=== PATIENT | male | born 1965 | race Caucasian/White ===

== ENCOUNTER → 2019-08-29 15:10 | Outpatient (REF) | payer BC, SELFPAY | LOC: ANHLAB 15:10 | PROVIDERS: PCP Internal Medicine; Visit Provider Nurse Practitioner | DX: C44.519 Basal cell carcinoma of skin of other part of trunk (principal); L57.0 Actinic keratosis | CPT/HCPCS: 88305 ==

== ENCOUNTER → 2019-09-26 07:47 | Outpatient (REF) | payer BC, SELFPAY | LOC: ANHLAB 07:47 | PROVIDERS: PCP Internal Medicine; Visit Provider Nurse Practitioner | DX: C44.519 Basal cell carcinoma of skin of other part of trunk (principal) | CPT/HCPCS: 88305; 88331; 88332 ==

== ENCOUNTER 2022-04-07 07:00 | Outpatient (NON) | payer BC, SELFPAY | END 2022-04-07 07:01 | disposition home or self-care (01) | LOC: ANHLAB 04-08 15:55 | PROVIDERS: PCP Internal Medicine; Visit Provider Nurse Practitioner | DX: C44.622 Squamous cell carcinoma of skin of right upper limb, including shoulder (principal) | CPT/HCPCS: 88305 ==

== ENCOUNTER 2022-04-22 07:00 | Outpatient (NON) | payer BC, SELFPAY | END 2022-04-22 07:01 | disposition home or self-care (01) | LOC: ANHLAB 04-23 11:54 | PROVIDERS: PCP Internal Medicine; Visit Provider Nurse Practitioner | DX: C44.92 Squamous cell carcinoma of skin, unspecified (principal) | CPT/HCPCS: 88304 ==

== ENCOUNTER 2022-09-11 14:03 | Outpatient (CLI) | payer BC, SELFPAY ==
--- NOTE | ~2022-09-11 | CT_ITS ---
EXAMINATION:CT chest high resolution wo ga DATE: 09/11/2022 14:38 INDICATION: Contact with and exposure to environmental hazard. TECHNIQUE: Computed tomography (CT) of the chest was performed without intravenous contrast. Automate d exposure control and iterative reconstruction technique were employed. The dose-length product (DLP ) was 347.22 mGy-cm. COMPARISON: CT abdomen and pelvis 01/14/2015 FINDINGS: The lungs demonstrate minimal atelectasis. There is a 3 mm nodule in lingula, likely benign . No bronchiectasis or honeycombing. Calcified left lung nodules and calcified left hilar and mediast inal lymph nodes are consistent with old granulomatous disease. No pleural effusion. The heart size i s normal. No pericardial effusion. Partially visualized are stones in the kidneys measuring up to 5 m m on the right. Calcifications in the spleen are consistent with old granulomatous disease. There is mild thoracic spondylosis. IMPRESSION: 1. No significant lung disease. Reviewed, dictated and finalized at location E.
== END 2022-09-11 14:04 | disposition home or self-care (01) ==
PROVIDERS: PCP Internal Medicine; Visit Provider Internal Medicine
DX: R05.9 Cough, unspecified (principal); Z77.128 Contact with and (suspected) exposure to other hazards in the physical environment
CPT/HCPCS: 71250

== ENCOUNTER 2023-01-15 15:12 | Outpatient (CLI) | payer BC, SELFPAY ==
--- NOTE | ~2023-01-15 | XR_ITS ---
XR wrist LT min 3V DATE: 01/15/2023 15:43 INDICATION: Radial pain for 4 months TECHNIQUE: 4 views COMPARISON: None FINDINGS: There is severe joint space narrowing at the triscaphe joint. Minimal osteoarthritis at fi rst metacarpophalangeal joint. No fracture or dislocation, periosteal reaction or bone destruction. No erosive change or chondrocalcinosis. IMPRESSION: Severe joint space narrowing at triscaphe joint Minimal osteoarthritis at first metacarpal joint Reviewed, dictated and finalized at location A.
--- NOTE | ~2023-01-15 | XR_ITS ---
XR elbow LT min 3V DATE: 01/15/2023 15:44 INDICATION: Elbow pain TECHNIQUE: 4 views COMPARISON: None FINDINGS: Small dorsal olecranon process spur. Minimal degenerative spurring of the radial head. No fracture or dislocation, periosteal reaction or bone destruction. No evidence of joint effusion. IMPRESSION: Mild dorsal olecranon process spur Minimal degenerative spurring of the radial head Reviewed, dictated and finalized at location A.
== END 2023-01-15 15:13 | disposition home or self-care (01) ==
PROVIDERS: PCP Internal Medicine; Visit Provider Internal Medicine
DX: M19.032 Primary osteoarthritis, left wrist (principal); M18.9 Osteoarthritis of first carpometacarpal joint, unspecified
CPT/HCPCS: 73080; 73110

== ENCOUNTER 2023-07-29 14:44 | Outpatient (CLI) | payer BC, SELFPAY ==
--- NOTE | ~2023-07-29 | XR_ITS ---
XR shoulder RT min 2V 07/29/2023 15:07 INDICATION: Right shoulder pain PROCEDURE: 4 views right shoulder COMPARISON: No prior studies for comparison. FINDINGS: Fracture, dislocation or subluxation is not identified. The soft tissues appear within norm al limits. No foreign bodies are identified. IMPRESSION: 1: NO ACUTE BONE OR JOINT ABNORMALITY IDENTIFIED. Reviewed, dictated and finalized at location A.
== END 2023-07-29 14:45 | disposition home or self-care (01) ==
PROVIDERS: PCP Internal Medicine; Visit Provider Internal Medicine
DX: M25.511 Pain in right shoulder (principal)
CPT/HCPCS: 73030

== ENCOUNTER 2023-08-04 15:15 | Outpatient (CLI) | payer BC, SELFPAY ==
--- NOTE | ~2023-08-04 | MR_ITS ---
EXAMINATION: MR shoulder RT wo con DATE: 08/04/2023 16:16 INDICATION: Right shoulder pain TECHNIQUE: Magnetic resonance imaging (MRI) of the affected shoulder was performed without intravenou s contrast. Sequences included axial PD-weighted FS FSE, coronal oblique PD-weighted FS FSE, coronal oblique T2-weighted FS FSE, sagittal PD-weighted FS FSE, and sagittal T1-weighted SE. COMPARISON: None. FINDINGS: Coracoacromial arch: The acromion undersurface is minimally curved in morphology (type I-II). The coracoacromial ligament is normal. Mild acromioclavicular osteoarthritis. Rotator cuff: Mild supraspinatus, infraspinatus and subscapularis tendons without discrete tear. The teres minor te ndon is normal. Normal rotator cuff muscle bulk and signal. Biceps tendon, glenoid labrum and glenohumeral cartilage: Mild tendinopathy and longitudinal split tear of the intra-articular long head biceps tendon. Posteri or to posterior inferior labral tear with associated subarticular cystlike change along the posterior and posterior inferior rim of the glenoid. There is chondral swelling and suggestion of chondral fis suring at the posterior inferior glenoid. Small region of deep chondral ulceration without degenerati ve subchondral changes at the superomedial aspect of the humeral head. Fluid: Physiologic amount of fluid in the glenohumeral joint and biceps tendon sheath. No loose osteochondr al bodies. No abnormal fluid signal in the subacromial/subdeltoid bursa to suggest bursitis. Bones: Bone alignment is normal. No fracture or pathologic marrow replacing process. There is capsular thick ening at the axillary recess which can be seen in the setting of adhesive capsulitis which is ultimat estela a clinical diagnosis. There is however no abnormal increased soft tissue density rotator cuff int erval which is also a typical finding of adhesive capsulitis. IMPRESSION: 1. Mild glenohumeral osteoarthritis with deep chondral ulceration at the superomedial aspect of the h umeral head and labral tear with adjacent chondral fissuring and underlying subarticular cystlike zita nges at the posterior to posterior inferior glenoid. 2. Mild rotator cuff tendinopathy without discrete tear. Reviewed, dictated and finalized at location A. IMPRESSION: 1. Mild glenohumeral osteoarthritis with deep chondral ulceration at the supero medial aspect of the humeral head and labral tear with adjacent chondral fissur ing and underlying subarticular cystlike changes at the posterior to posterior inferior glenoid. 2. Mild rotator cuff tendinopathy without discrete tear.
== END 2023-08-04 15:16 ==
LOC: GOSHIMG 15:19
PROVIDERS: Visit Provider Internal Medicine
DX: M19.011 Primary osteoarthritis, right shoulder (principal)
CPT/HCPCS: 73221

== ENCOUNTER 2023-11-12 08:28 | Outpatient (CLI) | payer BC, SELFPAY ==
--- NOTE | 2023-11-12 15:35 | ECG_ITS ---
Test Date: 2023-11-12 15:50:24 Measurements Intervals [place] Rate: 65 P: 62 RI: 180 QRS: 8 QRSD: 93 T: 29 QT: 395 QTc: 412 Interpretive Statements SINUS RHYTHM CONSIDER INFERIOR INFARCT, AGE INDETERMINATE ABNORMAL ECG No previous ECG available for comparison Electronically Signed On 11-12-2023 15:57:30 CDT by Victor Manuel Mendez D.O.
== END 2023-11-12 08:29 | disposition home or self-care (01) ==
PROVIDERS: PCP Internal Medicine; Visit Provider Orthopaedic Surgery
DX: E78.2 Mixed hyperlipidemia (principal); R94.31 Abnormal electrocardiogram [ECG] [EKG]
CPT/HCPCS: 93005

== ENCOUNTER 2023-11-16 01:12 | Day surgery (SDC) | payer BC, SELFPAY ==
[2023-11-10 13:08] VITALS: BMI 28.0
--- NOTE | 2023-11-10 13:16 | PC.NURSE ---
Report to the Outpatient Waiting Room, entrance under the green pavilion located off [facility], at time _1000_ on date _[id number]_. Planned Procedure Time: _1200_. Time changes happen often and if your time is changed the preop area will call you the afternoon before. - You and your visitor will be asked to self-screen and do not enter if you have any COVID symptoms. - A mask is optional within the hospital at this time. Patients may have clear liquids (water, carbonated beverages, clear teas, apple juice) until 3 hours prior to surgery with a maximum of 20 ounces. - No food from midnight until time of surgery Take the following medications with a SIP of water the morning of surgery: Ok for inhalers if needed. DO NOT STOP ANY OF YOUR OTHER PRESCRIPTION MEDICATIONS PRIOR TO SURGERY ?EXCEPT THE FOLLOWING Medications to discontinue per physician Patient stopped Diclofenac a few weeks ago. Date to take last dose Please no make-up, nail tajik, hairspray, perfume, deodorant, or body powder the day of surgery. No jewelry (including any body piercings) or valuables the day of surgery, leave them at home. Please take a shower or bath the night before, or the morning of, surgery with an antibacterial soap. Wear comfortable, loose fitting clothing. - Jewelry must be removed prior to entering the operating room. Rings and piercings that are not removed may be cut off. - The hospital will not accept responsibility for valuables. - Please leave all valuables, including medications, at home the day of surgery. If you are going home after surgery, a licensed experienced truck driver must drive you home. - NO public transportation without another adult if you receive anesthesia. - We recommend that an adult stay with you for 24 hours following discharge. - We also recommend that you do not drive, make important decision, drink alcoholic beverages, or take any drugs that were not prescribed by your health care provider for at least 24 hours after your discharge time. Follow any additional instructions given to you from your surgeon. If you or anyone in your household have experienced Covid symptoms in the past week, please notify your surgeon or the nurse liaison at the phone number below for possible testing. Telephone instructions given to __Joseph___and asked if any additional questions and then verbalized understanding. Patient advised to call surgeon office or pre surgery nurse liaison [phone] if any additional questions.
[2023-11-16] VITALS (9 sets, daily range): BP systolic 111–141; BP diastolic 77–92; PULSE 58–77; RESP 12–20; TEMP 36.1–36.2; O2SAT 96–100
[2023-11-16] MEDS: ACETAMINOPHEN 500 MG TABLET 1000 MG PO (10:30)
[2023-11-16] MEDS: LACTATED RINGERS 1,000 ML 30 ML IV CONT ×2 (11:05→13:38)
[2023-11-16] MEDS: KETOROLAC 15 MG/ML VIAL (*BKC) IV PUSH (11:14)
--- NOTE | 2023-11-16 11:30 | WPDANESEPPF ---
Anes - Initial Pre Proc Eval Procedure: Operation Date: 11/16/23 12:00 Proposed Procedures p Right Shoulder Arthroscopic Biceps Tenodesis with Superior Labrum Anterior and Posterior Tear Debridement - Dk Vuong MD Date/Time: 11/16/23 11:30 Surgeon: Dk Vuong MD Pre Op Diagnosis: biceps tenodesis, slap tear Patient Data Age: 58 Gender: M Height: 1.79 m Weight: 88.7 kg Last Vital Signs Temp 36.1 C L 11/16/23 10:52 Pulse 66 11/16/23 10:52 Resp 16 11/16/23 10:52 BP 111/81 11/16/23 10:52 Pulse Ox 100 11/16/23 10:52 O2 Del Method Room Air 11/16/23 10:52 Allergies Allergy/AdvReac Type Severity Reaction Status Date / Time oxycodone Allergy Intermediate Rash Verified 11/10/23 13:03 Lwldkau-AWG-ScW Reductase Allergy Unknown Joint Pain Verified 11/10/23 13:02 Inhibitor [Xjrjrew-Ezl-Zjb Reductase Inhibitor] Home Medications Medication Instructions Recorded Confirmed Type nebulizer and compressor (EasyAir #1 ea 12/04/20 11/10/23 History Compressor Nebulizer) omeprazole 20 mg capsule,delayed 20 mg PO BID PRN GERD #180 caps 03/31/22 11/10/23 Rx release tamsulosin 0.4 mg capsule See Rx Instructions .Route 04/04/22 11/16/23 Rx .COMPLEX #90 caps metaxalone 800 mg tablet 800 mg PO TID PRN muscle pain #30 02/03/23 11/16/23 Rx tabs ezetimibe 10 mg tablet (Zetia) 10 mg PO DAILY #90 tabs 04/06/23 11/16/23 Rx Nexlizet 180 mg-10 mg tablet See Rx Instructions .Route 07/21/23 11/16/23 Rx (bempedoic acid-ezetimibe) .COMPLEX #90 tabs montelukast 10 mg tablet See Rx Instructions .Route 08/20/23 11/16/23 Rx .COMPLEX #90 tabs hydrocodone 7.5 mg-acetaminophen 1 tablet PO Q6H PRN pain #120 tabs 09/09/23 11/16/23 Rx 325 mg tablet cholecalciferol (vitamin D3) 50 50 mcg PO DAILY 09/15/23 11/10/23 History mcg (2,000 unit) capsule albuterol sulfate 90 mcg/actuation 1 puff inhalation Q4H PRN 09/24/23 11/16/23 Rx aerosol inhaler shortness of breath or wheezing #42.5 grams allopurinol 300 mg tablet See Rx Instructions .Route 09/24/23 11/16/23 Rx .COMPLEX #90 tabs benzonatate 200 mg capsule 200 mg PO TID PRN cough #90 caps 09/24/23 11/10/23 Rx diclofenac sodium 75 mg 75 mg PO BID PRN Pain 11/10/23 11/10/23 History tablet,delayed release budesonide-formoterol HFA 160 See Rx Instructions .Route 11/16/23 Rx mcg-4.5 mcg/actuation aerosol .COMPLEX #30.6 grams inhaler Patient hx anesthesia problems: none Family hx anesthesia problems: none Results Review: All pre-operative results and documents have been reviewed as part of the pre-operative evaluation. [facility] Past Medical History Medical History (Updated 11/16/23 @ 11:41 by Mariano Lopez DO) Anxiety Asthma BCC (basal cell carcinoma), chest BMI 27.0-27.9,adult BMI 28.0-28.9,adult BRBPR (bright red blood per rectum) Chronic low back pain Cough DJD (degenerative joint disease) Encounter for preventive health examination Encounter for routine adult health examination without abnormal findings Fatigue Gastroesophageal reflux disease without esophagitis GERD (gastroesophageal reflux disease) Glaucoma Gout Heterozygous familial hypercholesterolemia High cholesterol History of kidney stones Hx of colonic polyps Left wrist pain Lesion of canthus Mixed hyperlipidemia Muscle cramps Nocturia Non-healing wound On snf drug therapy Pharyngitis Primary osteoarthritis involving multiple joints Prostate cancer screening Pruritus ani Reactive airway disease Seasonal allergies Sinus symptom Skin lesion Skin neoplasm Skin tag Statin intolerance Tear of left glenoid labrum Testicular hypofunction Surgical History Surgical History H/O hernia repair History of knee surgery 12 or 13 surgeries History of nasal surgery History of shoulder surgery Family History Family History (Reviewed 11/02/23 @ 08:06 by Nikky
--- NOTE | 2023-11-16 11:55 | WPDHPUPDATE1 ---
History and Physical Update Update Date/Time: 11/16/23 11:55 History and Physical has been reviewed, including an updated exam of the patient. There are NO changes in the patient's condition. Risks, benefits, and alternatives have been discussed and questions answered. Patient agrees to proceed with procedure.
--- NOTE | 2023-11-16 11:58 | WPDANESPNB ---
Anes - Peripheral Nerve Block Date/Time: 11/16/23 11:58 I have discussed with the patient/family/POA the placement of a peripheral nerve block for post-operative pain management, including associated risks, benefits, complications, and side effects. Alternative methods of post-operative analgesia were detailed. Questions were solicited and answers provided to the satisfaction of the patient/family/POA. Time-Out: A pre-procedural Time-Out was completed immediately before starting the procedure and confirmed: Patient Identification, Site, Procedure, Patient Position and the Availability of Requisite Equipment. Clinical Indications: Acute post-operative pain management requested by the operative surgeon. Nerve Block Insertion Note Anes-nerve block: interscalene right Patient position: supine Skin prep: chlorhexidine Needle: 22 gauge, stimulating, insulated echogenic needle. Needle length: 50 mm Technique: ultrasound Injectate: bupivacaine 0.5% with epi 5 mcg/ml (20cc- no epi) Observations: tolerated well Complications: none Procedure start time:: 1203 Procedure end time:: 1206
[2023-11-16] MEDS: ceFAZolin 2 GM/D5W 50 ML 2 GM/50 ML BAG IVPB (12:14)
--- NOTE | 2023-11-16 13:40 | P.OP_ITS ---
Procedure Note - Detailed Date of Procedure 11/16/23 Pre-op Diagnosis 1. Right shoulder SLAP tear with biceps tendinitis 2. Degenerative labral tear and mild degenerative arthritis 3. Subacromial impingement. Post-op Diagnosis Same Procedure Performed Right shoulder shoulder arthroscopic 1. Biceps tenodesis and labral debridement 2. Subacromial decompression Surgeon Dk Vuong MD [employer] Installation Mechanic Marcelle Jimenez PA-C Anesthesia General and Regional (Interscalene block) Findings Extensive superior and posterior labral tearing. Frayed and tearing intra- articular biceps tendon. Rotator cuff with only mild articular fraying at the supraspinatus. Arthritis with moderate chondral damage on the posterior humeral head and grade 4 chondromalacia at the posterior inferior glenoid with degenerative tearing of the posterior inferior labrum. Description of Procedure Preoperative antibiotics were given. The patient was brought to the operating room. Careful positioning in the beach chair was accomplished. The head neck were carefully positioned. A small bump was placed under the shoulder. The shoulder was prepped and draped in the usual sterile fashion. Examination under anesthesia performed. No significant findings. Standard posterior and anterior arthroscopic portals were established. The articular surfaces show degenerative wear on the humerus and the posterior glenoid. Extensive SLAP tear with posterior extension. Unstable and severely fraying intra-articular biceps. Loop intact biceps tenodesis performed with a single SwiveLock anchor at the articular margin. Attention was turned to the subacromial space. A complete bursectomy was performed. A modest acromioplasty was formed performed based on clinical, and MRI evidence of subacromial impingement. The acromion was clearly visualized. The coracoacromial ligament was partially released. Careful acromioplasty was performed. Loose bone fragments were carefully irrigated from the joint. The arthroscopic instruments were removed. The wounds were closed with interrupted 3-0 Monocryl suture followed by Steri-Strips. A sterile dressing was applied with a sling. The patient was extubated and brought to the recovery room in stable condition. There were no complications. Physician speech pathologist assistant, Marcelle Miranda PA-C, required for surgery; including patient positioning, draping, arthroscopic camera operation, maintaining instrument position, suture management, wound closure, and dressing and sling placement. Implants Arthrex 4.75 SwiveLock anchor. Estimated Blood Loss 10 Drains No Packing No Pathology None sent Complications No immediate complications Condition Stable Disposition PACU [facility] Billing Surgery - Charge Forward: Surgery Billing
[2023-11-16] MEDS: fentaNYL CITRATE INJ (*CRX) 100 MCG/2 ML VIAL 25 MCG IV PUSH ×4 (14:06→14:21)
[2023-11-16] MEDS: oxyCODONE HCL (*CRX) 5 MG TAB IR PO (14:54)
== END 2023-11-16 15:39 | disposition home or self-care (01) ==
PROVIDERS: PCP Internal Medicine; Visit Provider Orthopaedic Surgery
PROC: (CPT 29805; principal; 2023-11-16 12:00)
DX: S43.431A Superior glenoid labrum lesion of right shoulder, initial encounter (principal); M75.41 Impingement syndrome of right shoulder; M75.21 Bicipital tendinitis, right shoulder; M19.011 Primary osteoarthritis, right shoulder; M94.211 Chondromalacia, right shoulder; F41.9 Anxiety disorder, unspecified; E78.2 Mixed hyperlipidemia; J45.909 Unspecified asthma, uncomplicated; N18.9 Chronic kidney disease, unspecified; K21.9 Gastro-esophageal reflux disease without esophagitis; G89.29 Other chronic pain; M54.50 Low back pain, unspecified; G89.18 Other acute postprocedural pain; Z79.51 Long term (current) use of inhaled steroids; Z79.891 Long term (current) use of opiate analgesic; Z98.890 Other specified postprocedural states; Z86.010 Personal history of colon polyps; Z87.442 Personal history of urinary calculi; Z85.828 Personal history of other malignant neoplasm of skin; Z82.49 Family history of ischemic heart disease and other diseases of the circulatory system; X50.1XXA Overexertion from prolonged static or awkward postures, initial encounter
CPT/HCPCS: 64415; 29828; 29826; A9270; C1713; J0171; J0690; J1100; J1885; J2250; J2405; J2704; J3010; J7120

== ENCOUNTER 2024-03-14 08:50 | Outpatient (CLI) | payer BC, SELFPAY ==
--- NOTE | ~2024-03-14 | XR_ITS ---
XR abdomen/kub 1V Ordering provider: Juan Luis Curiel MD History: . N20.0 - Calculus of kidney . Comparison: None. FINDINGS: BOWEL: Nonobstructive bowel gas pattern. ORGANOMEGALY: None. SIGNIFICANT PATHOLOGIC CALCIFICATIONS: Bilateral kidney stones. OTHER: No free air is seen under the diaphragm. IMPRESSION: NO ACUTE ABDOMINAL FINDINGS. Bilateral kidney stones. Reviewed, dictated and finalized at location A. CAL RADIATION DOSIMETRIST
[2024-03-14 09:59] LABS: Add Urine Microscopic? YES; Appearance Urine Clear (Clear); Bacteria Urine None Seen /hpf; Bilirubin Urine Negative (Negative); Blood Urine 1+ (Negative); Color Urine Yellow (Yellow); Glucose Urine UA Negative (Negative); Ketones Urine Negative (Negative); Leukocyte Esterase Ur Negative LEU/UL (Negative); Nitrate Urine Negative (Negative); Non Pathogenic Casts 0-2; Protein Urine Negative (Negative); RBC Urine 21-50 /hpf (0-2); Specific Grav Ur 1.016 (1.001-1.035); Squamous Epithelial Cell Urine None Seen /hpf (Few); WBC Urine 0-5 /hpf (0-3); pH Urine 6.5 (5.0-9.0)
== END 2024-03-14 08:51 | disposition home or self-care (01) ==
LOC: ANHLAB 08:51
PROVIDERS: PCP Internal Medicine; Visit Provider Internal Medicine
DX: N20.0 Calculus of kidney (principal); N39.0 Urinary tract infection, site not specified
CPT/HCPCS: 74018; 81001

== ENCOUNTER 2024-03-23 08:32 | Outpatient (CLI) | payer BC, SELFPAY ==
--- NOTE | ~2024-03-23 | CT_ITS ---
CT of the Abdomen and Pelvis: Indication: Microscopic hematuria Technique: 2.5 mm axial scans were obtained through the abdomen and pelvis prior to and following in travenous administration of 130 cc of Omnipaque 350. Dose reduction technique was used on this scan b y utilizing automated exposure control and iterative reconstruction technique. The dose-length produc t (DLP) was 1349.48 mGy-cm. Findings: Scans through the lung bases are unremarkable. There are small bilateral nonobstructing renal stones, measuring up to 5 mm in greatest diameter. No ureteral stone or hydronephrosis on either side. The liver, spleen, pancreas, gallbladder, and adrenal glands are within normal limits. No evidence o f aortic aneurysm. No lymphadenopathy. No bowel obstruction or bowel wall thickening. There is no evidence to suggest acute appendicitis. Images through the pelvis were performed. Urinary bladder unremarkable. No pelvic mass seen. No ascit es. Impression: Bilateral nephrolithiasis, as detailed above. Reviewed, dictated and finalized at location . [facility] CONGRESS Impression: Bilateral nephrolithiasis, as detailed above.
[2024-03-23 09:24] LABS: Estimated Glomerular Filt Rate > 60
== END 2024-03-23 08:33 | disposition home or self-care (01) ==
PROVIDERS: PCP Internal Medicine; Visit Provider Internal Medicine
DX: R31.29 Other microscopic hematuria (principal); N20.0 Calculus of kidney
CPT/HCPCS: 74178; Q9967

== ENCOUNTER 2024-06-06 07:17 | Outpatient (CLI) | payer BC, SELFPAY ==
--- OUTSIDE RECORDS SUMMARY | 2024-06-06 07:21 | XMS_ITS | Clinical Summary ---
Author Organization [facility] Address [address] [place] [id number] Care Team Providers Care Polisher Balance Screwhead Name Role Phone Unavailable Primary Care Provider Unavailabl e Social History Tobacco Use Types Packs/Day Years Used Date Smoking Tobacco: Never Assessed Sex and Gender Information Value Date Recorded Sex Assigned at Not on file Legal Sex Male 7:05 PM CDT Gender Identity Not on file Sexual Orientation Not on file Plan of Treatment Health Maintenance Due Date Last Done Comments Colorectal Cancer Screening Colonoscopy (10 Years) 1963 Annual Physical 1966 Hepatitis C 1981 DTaP, Tdap and Td Vaccines ( 1 - Tdap) 1982 Zoster Vaccines (1 of 2) 2013 COVID-19 Vaccine ( - 2023-2 5 season) 2023 Influenza Adult (#1) 2024 RSV Immunization or 60+ Years (1 - 1-dose 75+ series) 2038 Meningococcal B Vaccine Aged Out No l onger eligible based on patient's age to complete this topic Meningococcal Vaccine Aged Out No alka gera eligible based on patient's age to complete this topic Pneumococcal Vaccine: Pediat rics (0 to 5 Years) and At-Risk Patients (6 to 64 Years) Aged Out No longer eligible b ased on patient's age to complete this topic RSV Immunizations Under 20 Months Aged Out No longer eligible based on patient's age to complete this topic
--- OUTSIDE RECORDS SUMMARY | 2024-06-06 07:21 | XMS_ITS | Continuity of Care Document ---
Author Organization [facility] Address [address] [place] [address] [facility] [address] [place] [address] Phone Care Team Providers Care Telecasting Technician Name Role Phone Carlitos DELONG FACS, Aidan Unavailable Unavailab le Procedures Procedure Date Eye Exam & Treatment Corneal Topography Fundus Photography W/ Report Advance Directives Directive Yes / No Effective Date File Name No Information Encounters Encounter Description Practice Location Reason(s) For Visit Diagnoses Date Provider Providers Copied on Encounter [facility], [address] [place], [place] [address] [address], [place], [place], [id number], tel:[phone] [facility] Valery No Information Carlitos Bermudez. [address] [place] [address], [address], [place], [id number], . tel:[phone] Referring Provider: Aidan Saleem, [address] [place] [address] [address], [place], [address] . tel:[phone] Family History Family Member Type Diagnosis Age At Onset No Information Payers Payer name Insurance type Covered republican ID Authoriza tion(s) No Information Social History Type Description Quantity Date Captured Comments Sex Male Smoking Status No Information Chief Complaint And Reason For Visit No Information Reason For Referral Reason For Referral No Information History Of Present Illness Encounter Date Complaint History Of Prese nt Illness No Information Functional Status Date Functional Assessmen t No Information Instructions Date Instruction Additional Infor mation No Information Assessments Type Assessment Date No Information Patient Care Teams Name Effective Dates (start - stop) Status Members No Information
--- OUTSIDE RECORDS SUMMARY | 2024-06-06 07:21 | XMS_ITS | Continuity of Care Document ---
Author Organization [facility] Address [address] [place] [address] Phone Care Team Providers Care Thread Spinner Name Role Phone Jose Roberto Jones PA-C Unavailable Unavailable Allergies, Adverse Reactions, Alerts Substance Reaction Status Criticality No Known Allergies Active No Inform ation Medications Medication Instructions Dosage Effective Dates (start - stop) Status Comments Percocet 7.5 mg-325 mg tablet take 1 tablet by oral route every 6 hours as needed 1.00 tablet - Active HYDROCODONE-ACETAMI NOPHEN (unknown strength) take 1 tablet by oral route every 4 - 6 hours as needed for pain Not Available - Active ALLOPURINOL (unknown strength) take 1 tablet by oral route every day Not Available - Active Zetia 10 mg tablet take 1 tablet by oral route every day 10 MG - Active ZAFIRLUKAST (unknown strength) take 2 tablet by oral route 2 times every day at least 1 hour before or 2 hours after meals Not Available - Active Procedures Procedure Date POSTOP FOLLOW-UP VISIT POSTOP FOLLOW-UP VISIT POSTOP FOLLOW-UP VISIT REPAIR BICEPS TENDON OFFICE/OUTPATIENT VISIT NEW Advance Directives Directive Yes / No Effective Date File Name No Information Encounters Encounter Description Practice Location Reason(s) For Visit Diagnoses Date Provider Providers Copied on Encounter [facility], [address], [place], [address], [place] tel:[phone] [facility] History of arthroscopy of left shoulder Apr-2 9 Karen Cid. [address], [place], [place], [id number] . tel: [phone] [facility], [address], [place], [address], [place] tel:[phone] [facility] History of arthroscopy of left shoulder 9 Karen Cid. [address], [place], [place], [id number] . tel: [phone] [facility], [address], [place], [address], [place] tel:[phone] [facility] History of arthroscopy of left shoulderPostoper ative visit 9 Karen Cid. [address], [place], [place], [id number] . tel: [phone] [facility], [address] [facility] [address], [place], [address], [place] tel:[phone] [facility] No Information 9 Mohsen Bautista. [address], [place], [place], [id number] . tel: [phone] [facility], [address] [facility] [facility], [place], [address], [place] tel:[phone] [facility] Rupture of left biceps tendon, initial encounterTear of left glenoid labrum, initial encounter 9 Mohsen Bautista. [address], [place], [place], [id number] . tel: [phone] OFFICE/OUTPA TIENT VISIT NEW [facility], [address], [place], [address], [place] tel:[phone] [facility] Tear of left glenoid labrum, initial encounterRupture of left biceps tendon, initial encounter 9 Mohsen Bautista. [address], [place], [place], [id number] . tel: [phone] Referring Provider: Juan Luis Conley, [address], [place], [address]. tel:[phone] Family History Family Member Type Diagnosis Age At Onset Father Problem (finding) Alive and well Mother Problem (finding) Alive and well Payers Payer name Insurance type Covered constitution party ID Tammy hewitt(s) [facility] E2 OT [id number] Social History Type Description Quantity Date Captured Comments Alcohol Use Details beer Caffeine Use Details Unknown Tobacco Use Status Current non-smoker 17 Smoking Status Never smoker Non-Smoking Tobacco Use Details : No Details Available : No Details Available Sex Male Chief Complaint And Reason For Visit No Information Reason For Referral Reason For Referral No Information History Of Present Illness Encounter Date Complaint History Of Prese nt Illness No Information Functional Status Date Functional Assessmen t Pain Score 10/27 Instructions Date Instruction Additional Infor lico Inform physician of any changes in symptoms or pain. Related to History of arthroscopy of left shoulder Report increased lizbeth n, swelling, numbness or discoloration. Related to Tear of left glenoid labrum, initial encounter Discussed surgical options Relat ed to Tear of left glenoid labrum, initial encounter Assessments Type Assessment Date assessment History of arthroscopy of left s abimael Patient Care Teams Name Effective Dates (start - stop) Status Members No Information
--- OUTSIDE RECORDS SUMMARY | 2024-06-06 07:22 | XMS_ITS | Patient Health Summary ---
Author Organization [facility] Address [address] [place] [address] Care Team Providers Care Coke Drawer Hand Name Role Phone Juan Luis Curiel MD Primary Care Provider [phone] Note from [facility],non-owned Affiliates and Associated Physician Practices is amultiple site organization consisting of ambulatory clinics and hospital sitesin [place], [place], [place] and [place]. This disclosure is being madepursuant to the Care Everywhere program and may not contain all information available regarding this patient. Last updated 18.[facility] Allergies No known active allergies Medications * Be aware that medications may not be up to date on this document. Alwaysverify current medications with the patient. * ezetimibe (ZETIA) 10 MG tablet(Started 11/27/2016) 2 refills left * montelukast (SINGULAIR) 10 MG tablet(Started 12/10/2016) Take 1 (one) tablet by mouth DAILY * HYDROcodone-acetaminophen (NORCO) 7.5-325 MG tablet(Started 09/30/2017) Take 1 (one) tablet by mouth every 6 hours as needed * zafirlukast (ACCOLATE) 20 MG tablet(Started 07/07/2017) Take 1 (one) tablet by mouth 2 times daily, before breakfast and supper 2 refills left * allopurinol (ZYLOPRIM) 300 MG tablet(Started 04/26/2018) Take 1 (one) tablet by mouth once daily * Betamethasone(Started 05/11/2019) Compound 0.5 mg capsules. Mix contents of 1 capsule in 240 ml saline, and irrigate half in each nostril twice daily 11 refills by 05/10/2020 * albuterol HFA (PROVENTIL; VENTOLIN; PROAIR) 108 (90 Base) MCG/ACT inhaler (Started 08/15/2021) as needed * tamsulosin (FLOMAX) 0.4 MG capsule(Started 07/31/2021) Take 1 (one) capsule by mouth at bedtime * predniSONE (DELTASONE) 20 MG tablet(Started 08/02/2021) as needed * metaxalone (SKELAXIN) 800 MG tablet(Started 03/13/2021) as needed * budesonide-formoterol (SYMBICORT) 160-4.5 MCG/ACT inhaler(Started 08/12/2021) INHALE 2 PUFFS BY MOUTH EVERY 12 HOURS * NEXLIZET 180-10 MG TABS(Started 08/13/2021) Take 1 tablet by mouth once daily * Mometasone Furoate(Started 11/11/2023) Use 1 mg 2 times daily Compound 1 mg capsule.Add onecapsule to 240mL saline in NeilMed irrigation bottle, and irrigate half in each nostril twice daily 11 refills by 11/10/2024 Active Problems Problem Noted Date Diagnosed Date Impingement syndrome of left shoulder 03/17/2018 Chronic pansinusitis 01/13/2017 Nasal polyp 10/15/2011 Allergic rhinitis 03/04/2011 Social History Tobacco Use Types Packs/Day Years Used Date Smoking Tobacco: Never Smokeless Tobacco: Never Tobacco Cessation:Counseling Given: Not Answered Alcohol Use Standard Drinks/Week Comments Yes 0 (1 standard drink = 0.6 oz pur e alcohol) Sex and Gender Information Value Date Recorded Sex Assigned at Not on file Gender Identity Not on file Sexual Orientation Not on file Last Filed Vital Signs Vital Sign Reading Time Taken Comments Blood Pressure 134/86 10/09/2021 3:15 PM CDT Pulse 72 10/09/2021 3:15 PM CDT Temperature - - Respiratory Rate - - Oxygen Saturation 95% 05/11/2019 3:30 PM CLUB WAITER/WAITRESS Inhaled Oxygen Concentration - - Weight 91.6 kg (202 lb) 11/11/2023 3:12 PM CDT Height 179.1 cm (5' 10.5 ) 11/11/2023 3:12 PM CD T Body Mass Index 28.57 11/11/2023 3:12 PM CDT Procedures * [facility] NASAL ENDOSCOPY,DX(Performed 11/11/2023) Performed for Chronic pansinusitis, Nasal polyp, Allergic rhinitis, unspecified seasonality, unspecified trigger * UT NASAL ENDOSCOPY,DX(Performed 10/09/2021) Performed for Chronic pansinusitis, Nasal polyp * UT NASAL ENDOSCOPY,DX(Performed 05/02/2020) Performed for Chronic pansinusitis * [facility] NASAL ENDOSCOPY,DX(Performed 10/15/2017) Performed for Nasal polyp, Allergic rhinitis, unspecified seasonality, unspecified trigger * CT FACIAL BONES WO CONTRAST(Performed 12/10/2016) * CULTURE AEROBIC(Performed 11/25/2011) * LAB HISTORICAL RESULTS-ONBASE(Performed 11/25/2011) * LAB HISTORICAL RESULTS-ONBASE(Performed 11/25/2011) * URINALYSIS - POINT OF CARE (AMB) [facility](Performed 10/29/2011) Results * UT NASAL ENDOSCOPY,DX (11/11/2023 3:20 PM CDT) Gardenia Bonds MD - 11/11/2023 3:20 PM CDT Gardenia Smith MD 11/11/2023 5:26 PM Procedure: Rigid Nasal Endoscopy Anesthesia: Bilateral Nasal Cavities sprayed with lidocaine and Neosynephrine Detail: Rigid nasal endoscopy performed bilaterally. We visualized the entire septum as well as the inferior turbinate middle turbinate and superior turbinate. We also visualize the nasopharynx. Unless mentioned below these structures were normal. No significant septal deviation. Is nasal cavity bilaterally is open anteriorly. Within the superior ethmoids on both sides there is some early polypoid changes. No julio purulence. Overall slightly worse than the last time we saw him 2 years ago. Gardenia Smith MD PROCEDURE/MINOR NICOLE GICAL ORDERABLES * UT NASAL ENDOSCOPY,DX (10/09/2021 4:08 PM CDT) Narrative Gardenia Smith MD - 10/09/2021 4:08 PM CDT Gardenia Smith MD 10/09/2021 4:08 PM Procedure: Rigid Nasal Endoscopy Anesthesia: Bilateral Nasal Cavities sprayed with lidocaine and Neosynephrine Detail: Rigid nasal endoscopy performed bilaterally. Septum was relatively midline. Bilateral nasal cavity showed middle turbinates in good position with some mild early polyposis and some edema; maxillary, ethmoid, sphenoid sinuses were patent and without purulence. Gardenia Smith MD PROCEDURE/MINOR NICOLE GICAL ORDERABLES * UT NASAL ENDOSCOPY,DX (05/02/2020 1:57 PM CLUB WAITER/WAITRESS) Gardenia Bonds MD - 05/02/2020 1:57 PM CLUB WAITER/WAITRESS Gardenia Smith MD 05/02/2020 2:11 PM Procedure: Rigid Nasal Endoscopy Anesthesia: Bilateral Nasal Cavities sprayed with lidocaine and Neosynephrine Detail: Rigid nasal endoscopy performed bilaterally. Septum was relatively midline. Bilateral nasal cavity showed crusting of right middle turbinate and some edema; maxillary, ethmoid, sphenoid sinuses were patent and without polypoid tissue or purulence. Gardenia Smith MD PROCEDURE/MINOR NICOLE GICAL ORDERABLES * UT NASAL ENDOSCOPY,DX (10/15/2017 10:05 AM CDT) Gardenia Bonds MD - 10/15/2017 10:05 AM CDT Robe Westfall MD 10/15/2017 10:05 AM Procedure: Rigid Nasal Sinus Endoscopy Procedure date: 10/14/2017 Pre Op Dx: nasal polyps, allergic rhinitis Post Op Dx: same Attending: Dr. Smith Resident: Robe Westfall MD Anesthesia: Bilateral Nasal Cavities sprayed with Lidocaine and Neosynephrine Detail: Rigid nasal endoscopy performed bilaterally. Septum was relatively midline. Right nasal cavity showed open maxillary sinus, polypoid changes to mucosa in the superior nasal cavity, there were no purulence. Left nasal cavity showed open maxillary sinus, less polypoid changes to mucosa than right in the superior nasal cavity, some synechiae, there were no purulence. Dr. Smith was present for the entire procedure. Robe Westfall MD 10/14/17 3:21 PM Robe Westfall MD PROCEDURE/MINOR SURG ICAL ORDERABLES * CT FACIAL BONES WO CONTRAST (12/10/2016 1:33 PM CDT) Anatomical Region Laterality Modality Head Other Impressions 12/10/2016 1:53 PM CDT IMPRESSION: 1. Mild to moderate diffuse paranasal sinus disease as described above without evidence of complications. This report was electronically signed by LUPE TORRES M.D. on 12/10/2016 1:53 PM . Narrative 12/10/2016 1:53 PM CDT EXAMINATION: Computed tomography (CT) of the maxillofacial bones, orbits, and paranasal sinuses without contrast HISTORY: Chronic sinusitis with polyposis TECHNIQUE: CT of the maxillofacial bones, orbits, and paranasal sinuses was performed without contrast according to standard protocol. FINDINGS: No prior study is available for comparison at the time of this dictation. The orbits appear normal. There is mild to moderate diffuse paranasal sinus disease with relative sparing of the sphenoid sinuses. Bilateral uncinectomies are present. The nasal septum is midline. The maxillary ostiomeatal units are open. The frontoethmoidal recesses are occluded. Portions of the right middle turbinate are absent. The right sphenoethmoidal recess is occluded. The hard palate, visible portions of the mandible, and temporomandibular joints appear normal. No bony destruction or dehiscence is identified. The mastoid air cells are clear. No soft tissue abnormality is identified. Procedure Note Lupe Torres MD - 07/17/2017 EXAMINATION: Computed tomography (CT) of the maxillofacial bones, orbits,and paranasal sinuses without contrast HISTORY: Chronic sinusitis with polyposis TECHNIQUE: CT of the maxillofacial bones, orbits, and paranasal sinuseswas performed without contrast according to standard protocol. FINDINGS: No prior study is available for comparison at the time of thisdictation. The orbits appear normal. There is mild to moderate diffuse paranasalsinus disease with relative sparing of the sphenoid sinuses. Bilateraluncinectomies are present. The nasal septum is midline. The maxillaryostiomeatal units are open. The frontoethmoidal recesses are occluded. Portions of the right middleturbinate are absent. The right sphenoethmoidal recess is occluded. Thehard palate, visible portions of the mandible, and temporomandibularjoints appear normal. No bony destruction or dehiscence is identified. The mastoid air cells are clear. No soft tissueabnormality is identified. IMPRESSION IMPRESSION: 1. Mild to moderate diffuse paranasal sinus disease as described abovewithout evidence of complications. This report was electronically signed by LUPE TORRES M.D. on 12/10/20161:53 PM . Gardenia Smith MD CT ORDERABLES * CULTURE AEROBIC (11/25/2011 2:39 PM CDT) Culture Routine MODERATE GROWTH OF GRAM NEGATIVE BACILLI BEING IDENTIFIED. MODERATE GROWTH OF GRAM POSITIVE COCCI IDENTIFIED [STAPHYLOCOCCUS AUREUS]. GRAM NEGATIVE BACILLI IDENTIFIED [ESCHERICHIA COLI]. [facility] Culture Results [facility] Organism ID ESCHERICHIA [facility]I [facility] Comment:ESCHERICHIA COLI Organism ID STAPHYLOCOCCUS AUREUS [facility] Comment:STAPHYLOCOCCUS AUREU S Nasal 11/25/2011 2:39 PM CDT 11/25/2011 3:08 PM CDT Narrative Organism Antibiotic Method Susceptibility Escherichia coli Amikacin CULTURE AEROBIC <=2: Sensitive Escherichia coli Ceftazidime CULTURE AEROBIC <=1: Sensitive Escherichia coli Ceftriaxone CULTURE AEROBIC <=1: Sensitive Escherichia coli Cefazolin CULTURE AEROBIC <=4: Sensitive Escherichia coli EXT SBL CULTURE AEROBIC - Escherichia coli Cefepime CULTURE AEROBIC <=1: Sensitive Escherichia coli Gentamicin CULTURE AEROBIC <=1: Sensitive Escherichia coli Imipenem CULTURE AEROBIC <=1: Sensitive Escherichia coli Levofloxacin CULTURE AEROBIC <=0.12: Sensitive Escherichia coli Ampicillin-sulbactam CULTURE AEROBIC <=2: Sensitive Escherichia coli Tobramycin CULTURE AEROBIC <=1: Sensitive Escherichia coli Trimethoprim-sulfame thoxazo le CULTURE AEROBIC <=20: Sensitive Staphylococcus aureus Clindamycin CULTURE AEROBIC Resistant Staphylococcus aureus Erythromycin CULTURE AEROBIC >=8: Resistant Staphylococcus aureus Gentamicin CULTURE AEROBIC <=0.5: Sensitive Staphylococcus aureus Levofloxacin CULTURE AEROBIC 0.25: Sensitive Staphylococcus aureus Oxacillin CULTURE AEROBIC 0.5: Sensitive Comment: OXACILLIN SUSCEPTIBILITY PREDICTS SUSCEPTIBILITY TO CEFAZOLIN. OXACILLIN RESISTANCE PREDICTS RESISTANCE TO CEPHALOSPORINS. Staphylococcus aureus Tetracycline CULTURE AEROBIC <=1: Sensitive Staphylococcus aureus Trimethoprim-sulfa methoxazo le CULTURE AEROBIC <=10: Sensitive Staphylococcus aureus Vancomycin CULTURE AEROBIC 1: Sensitive Gardenia Smith MD LAB - MICROBIOLOGY ORDERABLES [facility] [address] [place] [address] * LAB HISTORICAL RESULTS-ONBASE (11/25/2011) Only the most recent of2 resultswithin the time period is included. 11/25/2011 Narrative [facility] - 11/28/2011 9:28 AM CDT Gardenia Smith MD LAB - CHEMISTRY ORD ERABLES [facility] [address] [place] [address], [facility] * URINALYSIS - POINT OF CARE (AMB) [facility] (10/29/2011 11:58 AM CDT) Glucose UA neg [facility] Bilirubin UA POCT neg [facility] Ketones UA POCT neg [facility] Specific [place]ake UA 1.025 [facility] Blood Urine POCT neg [facility] pH UA 6.0 [facility] Protein UA neg [facility] Urobilinogen UA 0.2 [facility] Nitrite UA neg [facility] WBC UA neg [facility] Urine specimen (specimen) 10/29/2011 11:58 AM CDT Kevin Bird MD LAB - POINT OF CARE ORDERABLES [facility] Care Teams Coke Drawer Hand Relationship Specialty Start Date End Date Juan Luis Curiel MD [address] [place] [address] PCP - General 01/28/08
--- OUTSIDE RECORDS SUMMARY | 2024-06-06 07:22 | XMS_ITS | Clinical Summary ---
Author Organization [facility] Address [address] [place] [address] Care Team Providers Care Web Content Specialist Name Role Phone Juan Luis Curiel MD Primary Care Provider + Allergies Active Allergy Reactions Criticality Noted Date Comments Oxycodone Rash Medium 05/18/2018 Medications budesonide (RHINOCORT AQUA) 32 mcg/actuation [place], Non-Aerosol Administer 2 Sprays in each nostril Continuous as needed. 7 Active ezetimibe (ZETIA) 10 mg tablet Take 10 mg by mouth daily. 7 Active fluticasone (FLONASE) 50 mcg/spray [place], Suspension 2 Sprays. 7 Active montelukast (SINGULAIR) 10 mg tablet Take 10 mg by mouth. 7 Active zafirlukast (ACCOLATE) 20 mg tablet TK 1 T PO BID 1 HOUR B OR 2 H AFTER MEALS 8 Active PROAIR HFA 90 mcg/actuation inhaler INL 2 PFS PO Q 4 TO 6 H PRN WHZ 1 8 Active allopurinol (ZYLOPRIM) 300 mg tablet TK 1 T PO QD 1 8 Active benzonatate (TESSALON) 200 mg capsule TK 1 C PO TID PRF COUGH 0 8 Active SYMBICORT 160-4.5 mcg/actuation HFA Aerosol Inhaler 6 8 Active metaxalone (SKELAXIN) 800 mg tablet TK 1 T PO TID PRN Muscle spasm 0 8 Active diclofenac sodium (VOLTAREN) 75 mg Tablet, Delayed Release (E.C.) Take 75 mg by mouth 2 times daily as needed for Pain . Active zafirlukast (ACCOLATE) 20 mg tablet Take 20 mg by mouth daily. Active budesonide-form oterol (SYMBICORT) 160-4.5 mcg/actuation HFA Aerosol Inhaler Take 2 Puffs by inhalation daily. Active omeprazole (PriLOSEC) 20 mg Capsule, Delayed Release(E.C.) Take 20 mg by mouth 1 time daily as needed (acid reflux). Active HYDROcodone-emily taminophen (NORCO) 7.5-325 mg Tablet Take 1 or 2 Tablets by mouth every 4 hours as needed for Pain, Moderate 60 Tablet 9 Active Active Problems Problem Noted Date Diagnosed Date Impingement syndrome of left shoulder 03/17/2018 Family History Medical History Relation Name Comments No Known Problems Father No Known Problems Mother Relation Name Status Comments Father Mother Social History Tobacco Use Types Packs/Day Years Used Date Smoking Tobacco: Never Smokeless Tobacco: Never Alcohol Use Standard Drinks/Week Comments Yes 0 (1 standard drink = 0.6 oz pur e alcohol) social Sex and Gender Information Value Date Recorded Sex Assigned at Not on file Legal Sex Male 2:52 AM SENIOR WRITER Gender Identity Not on file Sexual Orientation Not on file Last Filed Vital Signs Vital Sign Reading Time Taken Comments Blood Pressure 111/82 05/24/2018 8:30 PM SENIOR WRITER Pulse 89 05/24/2018 8:30 PM SENIOR WRITER Temperature 36.9 C (98.4 F) 05/24/2018 7:55 PM SENIOR WRITER Respiratory Rate 15 05/24/2018 7:50 PM SENIOR WRITER Oxygen Saturation 98% 05/24/2018 8:30 PM SENIOR WRITER Inhaled Oxygen Concentration - - Weight 88.1 kg (194 lb 4 oz) 05/24/2018 1:40 PM SENIOR WRITER Height 180.3 cm (5' 11 ) 05/24/2018 1:40 PM SENIOR WRITER Body Mass Index 27.09 05/24/2018 1:40 PM SENIOR WRITER Plan of Treatment Health Maintenance Due Date Last Done Comments DTAP/TDAP/TD VACCINES (1 - Tdap) 1982 COLORECTAL SCREENING 02/29/2008 Colorectal Cancer Screening 02/29/2008 FIT-DNA Q 3 years 02/29/2008 FIT/FOBT Q 1 year 02/29/2008 Flex Sig/CT Colonography Q 5 years 02/29/2008 ZOSTER VACCINE (1 of 2) 2013 INFLUENZA VACCINE (#1) 2023 RSV VACCINE (60+ or ) (1 - 1-dose 75+ series) 2038 PNEUMOCOCCAL VACCINE 0-64 YEARS Aged Out No longer eligible based on patient's age to complete this topic Medical Devices Implanted Type Area [employer] Operations Officer Device Identifier Shelf Expiration Date Model / Serial / Lot Quattro X Suture [place] 5.5 Peek Implanted:Qty: 1 on 05/24/2018 by Michele Connolly MD at [facility] Left: Shoulder [place] [employer] 01/13/2023 [id number] / / [id number] Description:[id number] Insurance [employer] Care Teams Web Content Specialist Relationship Specialty Start Date End Date Juan Luis Curiel MD [address] [place] [address] PCP - General Internal Medicine 03/17/18
--- OUTSIDE RECORDS SUMMARY | 2024-06-06 07:22 | XMS_ITS | Clinical Summary ---
Author Organization [facility] Address [address] [place] [address] Care Team Providers Care Junior Marketing Associate Name Role Phone Juan Luis Curiel MD Primary Care Provider [phone] Source Comments [facility],non-owned Affiliates and Associated Physician Practices is amultiple site organization consisting of ambulatory clinics and hospital sitesin [place], [place], [place] and [place]. This disclosure is being madepursuant to the Care Everywhere program and may not contain all information available regarding this patient. Last updated 18.[facility] Allergies No known active allergies Medications * Be aware that medications may not be up to date on this document. Alwaysverify current medications with the patient. Medication Sig Dispensed Refills Start Date End Date Status ezetimibe (ZETIA) 10 MG tablet 2 11/27/2016 Active montelukast (SINGULAIR) 10 MG tablet Take 1 (one) tablet by mouth DAILY 12/10/2016 Active HYDROcodone-acetami nophen (NORCO) 7.5-325 MG tablet Take 1 (one) tablet by mouth every 6 hours as needed 0 09/30/2017 Active zafirlukast (ACCOLATE) 20 MG tablet Take 1 (one) tablet by mouth 2 times daily, before breakfast and supper 2 07/07/2017 Active allopurinol (ZYLOPRIM) 300 MG tablet Take 1 (one) tablet by mouth once daily 04/26/2018 Active Betamethasone Compound 0.5 mg capsules. Mix contents of 1 capsule in 240 ml saline, and irrigate half in each nostril twice daily 60 bottles 11 05/11/2019 Active albuterol HFA (PROVENTIL; VENTOLIN; PROAIR) 108 (90 Base) MCG/ACT inhaler as needed 08/15/2021 Active tamsulosin (FLOMAX) 0.4 MG capsule Take 1 (one) capsule by mouth at bedtime 07/31/2021 Active predniSONE (DELTASONE) 20 MG tablet as needed 08/02/2021 Active metaxalone (SKELAXIN) 800 MG tablet as needed 03/13/2021 Active budesonide-formoter ol (SYMBICORT) 160-4.5 MCG/ACT inhaler INHALE 2 PUFFS BY MOUTH EVERY 12 HOURS 08/12/2021 Active NEXLIZET 180-10 MG TABS Take 1 tablet by mouth once daily 08/13/2021 Active Mometasone Furoate Use 1 mg 2 times daily Compound 1 mg capsule.Add onecapsule to 240mL saline in NeilMed irrigation bottle, and irrigate half in each nostril twice daily 60 g 11 11/11/2023 Active Active Problems Problem Noted Date Diagnosed Date Impingement syndrome of left shoulder 03/17/2018 Chronic pansinusitis 01/13/2017 Nasal polyp 10/15/2011 Allergic rhinitis 03/04/2011 Family History Medical History Relation Name Comments Anemia Mother Relation Name Status Comments Mother Social History Tobacco Use Types Packs/Day [...] - Oxygen Saturation 95% 05/11/2019 3:30 PM DOCTOR NATUROPATHIC Inhaled Oxygen Concentration - - Weight 91.6 kg (202 lb) 11/11/2023 3:12 PM CDT Height 179.1 cm (5' 10.5 ) 11/11/2023 3:12 PM CD T Body Mass Index 28.57 11/11/2023 3:12 PM CDT Plan of Treatment Health Maintenance Due Date Last Done Comments AJAY (AGES 45-75) - COL ON CA SCREENING 1965 COLON MONITORING 1965 COLONOSCOPY - COLON CA SCREENING 1963 CT COLONOGRAPHY - COLON CA SCREENING 1965 Colorectal Cancer Screening 1965 FIT - COLON CA SCREENING 1963 FLEX SIG - COLON CA SCREENING 1963 LIPID TESTING 1963 HIV SCREENING 1978 HEPATITIS C SCREENING 02/23/1981 DTAP/TDAP/TD VACCINES (1 - Tdap) 1982 PNEUMOCOCCAL VACCINE 50+ (1 of 1 - PCV) 2013 ZOSTER VACCINE (1 of 2) 2013 SCREENING FOR DIABETES 11/11/2023 COVID-19 VACCINE (1 - 2023-2 5 season) 2023 INFLUENZA VACCINE (#1) 2023 DEPRESSION SCREENING 04/20/2024 Respiratory Syncytial Virus (RSV) Vaccine Pt: or over 60 yrs (1 - 1-dose 75+ series) 2038 HEPATITIS B VACCINE Aged Out No longe r eligible based on patient's age to complete this topic HIB VACCINE Aged Out No longer eligi ble based on patient's age to complete this topic HPV VACCINE Aged Out No longer eligi ble based on patient's age to complete this topic MENINGOCOCCAL (Group B) VACCINE Aged Out No longer eligible based on patient's age to complete this topic MENINGOCOCCAL VACCINE Aged Out No alka gera eligible based on patient's age to complete this topic PNEUMOCOCCAL VACCINE Aged Out No long er eligible based on patient's age to complete this topic Care Teams Junior Marketing Associate Relationship Specialty Start Date End Date Juan Luis Curiel MD [address] [place] [address] PCP - General 01/28/08
--- OUTSIDE RECORDS SUMMARY | 2024-06-06 07:22 | XMS_ITS | Referral Summary ---
Author Organization [facility] [employer] Address [address] [place] [address] Care Team Providers Care Director Internal Communications Name Role Phone Juan Luis Curiel MD Primary Care Provider [phone] Source Comments [facility] [employer],non-owned Affiliates and Associated Physician Practices is amultiple site organization consisting of ambulatory clinics and hospital sitesin [place], [place], [place]. This disclosure is being madepursuant to the Care Everywhere program and may not contain all information available regarding this patient. Last updated 18.[facility] [employer] Allergies No known active allergies Medications * [...] - Oxygen Saturation 95% 05/11/2019 3:30 PM SEXUAL ASSAULT COUNSELOR Inhaled Oxygen Concentration - - Weight 91.6 kg (202 lb) 11/11/2023 3:12 PM CDT Height 179.1 cm (5' 10.5 ) 11/11/2023 3:12 PM CD T Body Mass Index 28.57 11/11/2023 3:12 PM CDT Plan of Treatment Not on file Care Teams Director Internal Communications Relationship Specialty Start Date End Date Juan Luis Curiel MD [address] [place] [address] PCP - General 01/28/08
--- OUTSIDE RECORDS SUMMARY | 2024-06-06 07:23 | XMS_ITS | Encounter Summary ---
Author Organization [facility] Address [address] [place] [address] Care Team Providers Care Ed Educational Aide Name Role Phone Juan Luis Curiel MD Primary Care Provider + Encounter Details Date Type Department Care Team (Latest Contact Info) Description 09/02/2007 Outpatient Historical [facility] Apollo Bell MD [address] 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 Gender Identity Not on file Sexual Orientation Not on file documented as of this encounter Plan of Treatment Not on file documented as of this encounter Procedures Procedure Name Priority Date/Time Associated Diagnosis Comments PATHOLOGY Routine 09/09/2007 12:50 PM CDT HEMOGLOBIN AND HEMATOCRIT Stat 09/09/2007 9:11 AM CDT documented in this encounter Results * PATHOLOGY (09/09/2007 12:50 PM CDT) FINAL REPORT [facility] [place], [place] [address] [place], [place] [address] Patient: JAG STEELE : 1965 Procedure Date: 09/09/2007 Accession Date: 09/09/2007 Case No: [id number] Ordering Dr: APOLLO BELL Case types AW, BW, FW, NW and SH are performed [place] [facility] [place] SURGICAL PATHOLOGY & NON-GYNECOLOGIC CYTOPATHOLOGY REPORT DIAGNOSIS PARANASAL SINUS, LEFT, EXCISION: - CHRONIC INFLAMMATION. PARANASAL SINUS, RIGHT, EXCISION: - SQUAMOUS METAPLASIA (SEE MICROSCOPIC). - CHRONIC INFLAMMATION. Specimen Description: (1) Left sinus contents; (2) right sinus contents. Operative Procedure: Septoplasty, inferior turbinate cautery, bilateral maxillary antrostomy, anterior ethmoidectomy. Patient Information/History/ Diagnosis: Chronic sinusitis, nasal obstruction. Gross: Two containers are received labeled Jag Steele. Received in the first container, additionally labeled left sinus contents, is a 2.3 x 1.7 x 0.3-cm aggregate of multiple irregular fragments of pink-pratt, glistening mucosa, cartilage and bone. The specimen is submitted entirely in cassette A1 for rapid decalcification. Received in the second container, additionally labeled right sinus contents, is a 2.5 x 2 x 0.3-cm aggregate of pink-pratt, glistening mucosa, cartilage and bone. The specimen is submitted entirely in cassette B1 for rapid decalcification. CARINA/DIMA 09.09.2007 03:10 pm Microscopic: The slides are labeled [id number], Jag Steele. The mucosa from the left contains a patchy lymphoplasmacytic infiltrate associated with foci of stromal edema. The specimen from the right also contain a stromal chronic inflammatory infiltrate composed predominantly of lymphocytes and plasma cells. A localized area of surface epithelium is characterized by the presence of squamous metaplasia in which there is a significant mitotic rate. There is surface maturation present. Some of the epithelium is very thin suggesting a re-epithelialized erosion. This abnormality has been reviewed at intradepartmental case conference. ARMANDO/ANIA 09.10.2007 01:53 pm Staging Form: no ELECTRONIC SIGNATURE FOR MARIA ELENA COOPER M.D.- 09/10/07 04:37 pm INTERFACE SYSTEM 09/09/2007 12:5 0 PM CDT us Apollo Bell MD PATHOLOGY/CYTOLOGY ORDERABLES Fi nal Result INTERFACE SYSTEM Refer to clinic/hospital department * HEMOGLOBIN AND HEMATOCRIT (09/09/2007 9:11 AM CDT) HEMOGLOBIN 16.0 13.6 - 16.5 g/dL [facility] HEMATOCRIT 45.1 40.0 - 48.0 % [facility] Blood specimen (specimen) 09/09/2007 9:11 AM CDT 09/09/2007 9:11 AM CDT Narrative [facility] - 09/09/2007 9:20 AM CDT rm35 us Apollo Bell MD HEMATOLOGY ORDERABLES Final Resu lt [facility] CLIA# [id number] [address] [place] [address] documented in this encounter Visit Diagnoses Diagnosis Deviated nasal septum documented in this encounter Care Teams Ed Educational Aide Relationship Specialty Start Date End Date Juan Luis Curiel MD [address] [place] [address] PCP - General Internal Medicine 03/17/18 documented as of this encounter
[2024-06-06 11:14] LABS: Total Protein Urine Random 7 mg/dL
[2024-06-06 11:16] LABS: Sodium Urine Random 75 meq/L
[2024-06-06 11:17] LABS: Sodium 24 Hour Urine 217 mmol/day (40-220); Total Protein Urine 24 Hr 203 mg/24hr (28-141); Total Volume 24 Hour Urine 2900 ml
[2024-06-06 12:21] LABS: Specific Gravity Ur 1.015
[2024-06-09 11:28] LABS: Uric Acid, 24-Hour Urine 600 mg/24 h (120-820)
== END 2024-06-06 07:18 | disposition home or self-care (01) ==
LOC: ANHLAB 07:18
PROVIDERS: PCP Internal Medicine; Visit Provider Internal Medicine Nephrology
DX: N20.0 Calculus of kidney (principal)
CPT/HCPCS: 81050; 82131; 82340; 82507; 82570; 83735; 83945; 84105; 84156; 84300; 84560

== ENCOUNTER 2024-07-21 14:43 | Outpatient (CLI) | payer BC, SELFPAY ==
--- OUTSIDE RECORDS SUMMARY | 2024-07-21 15:09 | XMS_ITS | Clinical Summary ---
Author Organization [facility] Address [address] [place] [address] Care Team Providers Care Electric Locomotive Firer/Fireman Name Role Phone Unavailable Primary Care Provider [...]
--- OUTSIDE RECORDS SUMMARY | 2024-07-21 15:09 | XMS_ITS | Encounter Summary ---
Author Organization [facility] Address 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 Gender Identity Not on file Sexual Orientation Not on file documented as of this encounter Plan of Treatment Not on file documented as of this encounter Procedures Procedure Name Priority Date/Time Associated Diagnosis Comments PATHOLOGY Routine 09/09/2007 12:50 PM CDT HEMOGLOBIN AND HEMATOCRIT Stat 09/09/2007 9:11 AM CDT documented in this encounter Results * PATHOLOGY (09/09/2007 12:50 PM CDT) FINAL REPORT [facility] [address] [place], [place] [address] Patient: JAG STEELE : 1965 Procedure Date: 09/09/2007 Accession Date: 09/09/2007 Case No: [id number] Ordering Dr: APOLLO BELL Case types AW, BW, FW, NW and SH are performed [place] [facility] [place] SURGICAL PATHOLOGY & NON-GYNECOLOGIC CYTOPATHOLOGY REPORT [...] 03:10 pm Microscopic: The slides are labeled [id number], Jag Steele. The mucosa from the left [...] CDT) HEMOGLOBIN 16.0 13.6 - 16.5 g/dL [facility] HEMATOCRIT 45.1 40.0 - 48.0 % [facility] Blood specimen (specimen) 09/09/2007 9:11 AM CDT 09/09/2007 9:11 AM CDT Narrative [facility] - 09/09/2007 9:20 AM CDT rm35 us Apollo Bell MD HEMATOLOGY ORDERABLES Final Resu lt [facility] CLIA# [id number] [address] [place] [address] documented in this encounter Visit Diagnoses Diagnosis Deviated nasal septum documented in this encounter Care Teams Oracle Database Administrator Relationship Specialty Start Date End Date Juan Luis Curiel MD [address] [place] [address] PCP - General Internal Medicine 03/17/18 documented as of this encounter
--- OUTSIDE RECORDS SUMMARY | 2024-07-21 15:09 | XMS_ITS | Clinical Summary ---
Author Organization [facility] [employer] Address [address] [place] [address] Care Team Providers Care Office Automation Technician Name Role Phone Juan Luis Curiel MD Primary Care Provider [phone] Source Comments [facility] [employer],non-owned Affiliates and Associated Physician Practices is amultiple site organization consisting of ambulatory clinics and hospital sitesin [place], [place], [place]. This disclosure is being madepursuant to the Care Everywhere program and may not contain all information available regarding this patient. Last updated 18.[facility] [employer] Allergies No known active allergies Medications [...] - Oxygen Saturation 95% 05/11/2019 3:30 PM PICKER/PULLER Inhaled Oxygen Concentration - - Weight 91.6 [...] to complete this topic MENINGOCOCCAL (Group B) VACC INE SHARED DECISION-MAKING Aged Out No longer eligibl e based on patient's age to complete this topic MENINGOCOCCAL GROUPS A/C/Y/W VACCINE Aged Out No longer eligible b ased on patient's age to complete this topic PNEUMOCOCCAL VACCINE Aged Out No long er eligible based on patient's age to complete this topic Care Teams Office Automation Technician Relationship Specialty Start Date End Date Juan Luis Curiel MD [address] [place] [address] PCP - General 01/28/08
--- OUTSIDE RECORDS SUMMARY | 2024-07-21 15:09 | XMS_ITS | Continuity of Care Document ---
Author Organization [facility] Address [address] [place] [address] [facility] [address] [place] [address] Phone Care Team Providers Care Director Of Business Operations Name Role Phone Carlitos DELONG FACS, Aidan Unavailable Unavailab le Procedures Procedure Date Eye Exam & Treatment Corneal Topography Fundus Photography W/ Report Advance Directives Directive Yes / No Effective Date File Name No Information Encounters Encounter Description Practice Location Reason(s) For Visit Diagnoses Date Provider Providers Copied on Encounter [facility], [address] [place], [place] [address] [address], [place], [place], [id number], tel:[phone] [facility] Valery No Information Carlitos Bermudez. [address] [place] [address], [address], [place], [id number], . tel:[phone] Referring Provider: Aidan Saleem, [address] [place] [address] [address], [place], [address] . tel:[phone] Family History Family Member Type Diagnosis Age At Onset No Information Payers Payer name Insurance type Covered green party ID Authoriza tion(s) No Information Social History [...]
--- OUTSIDE RECORDS SUMMARY | 2024-07-21 15:09 | XMS_ITS | Continuity of Care Document ---
Author Organization [facility] Address [address] [place] [address] Phone Care Team Providers Care Tornado Chaser Name Role Phone Jose Roberto Jones PA-C Unavailable Unavailable Allergies, Adverse Reactions, Alerts Substance Reaction Status Criticality No Known Allergies Active No Inform ation Medications Medication Instructions Dosage Effective Dates (start - stop) Status Comments Percocet 7.5 mg-325 mg tablet take 1 tablet by oral route every 6 hours as needed 1.00 tablet - Active ZAFIRLUKAST (unknown strength) take 2 tablet by oral route 2 times every day at least 1 hour before or 2 hours after meals Not Available - Active Zetia 10 mg tablet take 1 tablet by oral route every day 10 MG - Active ALLOPURINOL (unknown strength) take 1 tablet by oral route every day Not Available - Active HYDROCODONE-ACETAMI NOPHEN (unknown strength) take 1 tablet by oral route every 4 - 6 hours as needed for pain Not Available - Active Procedures Procedure Date POSTOP FOLLOW-UP VISIT POSTOP FOLLOW-UP VISIT POSTOP FOLLOW-UP VISIT REPAIR BICEPS TENDON OFFICE/OUTPATIENT VISIT NEW Advance Directives Directive Yes / No Effective Date File Name No Information Encounters Encounter Description Practice Location Reason(s) For Visit Diagnoses Date Provider Providers Copied on Encounter [facility], [address], [place], [address], [place] tel:[phone] [facility] History of arthroscopy of left shoulder Apr-2 9 Karen Cid. [address], [place], [place], [id number] . tel: [phone] [facility], [address], [place], [address], [place] tel:[phone] [facility] History of arthroscopy of left shoulder 9 Karen Cid. [address], [place], [place], [id number] . tel: [phone] [facility], [address] [address] [address], [place], [address], [place] tel:[phone] [facility] History of arthroscopy of left shoulderPostoper ative visit 9 Karen Cid. [address], [place], [place], [address] . tel: [phone] [facility], [address] [address], [place], [address], [place] tel:[phone] [facility] No Information 9 Mohsen Bautista. [address], [place], [place], [id number] . tel: [phone] [facility], [address] [facility] [address] [facility] [address] [facility] [address], [place], [address], [place] tel:[phone] [facility] Rupture of left biceps tendon, initial encounterTear of left glenoid labrum, initial encounter 9 Mohsen Bautista. [address], [place], [place], [address] . tel: [phone] OFFICE/OUTPA TIENT VISIT NEW [facility], [address], [place], [address], [place] tel:[phone] [facility] Tear of left glenoid labrum, initial encounterRupture of left biceps tendon, initial encounter 9 Mohsen Bautista. [address], [place], [place], [id number] . tel: [phone] Referring Provider: Juan Luis Conley, [address], [place], [address]. tel:[phone] Family History Family Member Type Diagnosis Age At Onset Father Problem (finding) Alive and well Mother Problem (finding) Alive and well Payers Payer name Insurance type Covered constitution party ID Tammy hewitt(s) [facility] E2 OT [id number] Social History Type Description Quantity Date Captured [...]
--- OUTSIDE RECORDS SUMMARY | 2024-07-21 15:09 | XMS_ITS | Clinical Summary ---
Author Organization [facility] Address [address] [place] [address] Care Team Providers Care Extrusion Die Coordinator Name Role Phone Juan Luis Curiel MD Primary Care Provider + Allergies Active Allergy Reactions Criticality Noted Date Comments Oxycodone Rash Medium 05/18/2018 Medications budesonide (RHINOCORT AQUA) 32 mcg/actuation [place], Non-Aerosol Administer 2 Sprays in each nostril Continuous as needed. 7 Active ezetimibe (ZETIA) 10 mg tablet Take 10 mg by mouth daily. 7 Active fluticasone (FLONASE) 50 mcg/spray [place], Suspension 2 Sprays. 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 Gender Identity Not on file Sexual Orientation Not on file Last Filed Vital Signs Vital Sign Reading Time Taken Comments Blood Pressure 111/82 05/24/2018 8:30 PM RAIL ENGINEER Pulse 89 05/24/2018 8:30 PM RAIL ENGINEER Temperature 36.9 C (98.4 F) 05/24/2018 7:55 PM RAIL ENGINEER Respiratory Rate 15 05/24/2018 7:50 PM RAIL ENGINEER Oxygen Saturation 98% 05/24/2018 8:30 PM RAIL ENGINEER Inhaled Oxygen Concentration - - Weight 88.1 kg (194 lb 4 oz) 05/24/2018 1:40 PM RAIL ENGINEER Height 180.3 cm (5' 11 ) 05/24/2018 1:40 PM RAIL ENGINEER Body Mass Index 27.09 05/24/2018 1:40 PM RAIL ENGINEER Plan of Treatment Health Maintenance Due Date Last Done Comments DTAP/TDAP/TD VACCINES (1 - Tdap) 1982 COLORECTAL SCREENING 02/29/2008 Colorectal Cancer Screening 02/29/2008 FIT-DNA Q 3 years 02/29/2008 FIT/FOBT Q 1 year 02/29/2008 Flex Sig/CT Colonography Q 5 years 02/29/2008 ZOSTER VACCINE (1 of 2) 2013 INFLUENZA VACCINE (#1) 2023 RSV VACCINE (60+ or ) (1 - 1-dose 75+ series) 2038 PNEUMOCOCCAL VACCINE 0-49 YEARS Aged Out No longer eligible based on patient's age to complete this topic Medical Devices Implanted Type Area Silviculture Professor Device Identifier Shelf Expiration Date Model / Serial / Lot Quattro X Suture [place] 5.5 Peek Implanted:Qty: 1 on 05/24/2018 by Michele Connolly MD at [facility] Left: Shoulder [employer] 01/13/2023 [id number] / / [id number] Description:REQ#[id number] Insurance [employer] Care Teams Extrusion Die Coordinator Relationship Specialty Start Date End Date Juan Luis Curiel MD [address] [place] [address] PCP - General Internal Medicine 03/17/18
--- NOTE | 2024-07-22 17:18 | WPDPFTINT ---
PFT Procedure Performed PFT Procedure Performed Spirometry with Pre/Post Bronchodilator Plethysmography (Lung Vol) Diffusing Cap (DLCO) Flow Vol Loop PFT Interpretation This is a pulmonary function test with pre and post-bronchodilator spirometry, plethysmography and diffusing capacity. The test was performed and results interpreted in accordance with the 2019 and 2005 ATS/ERS Task Force guidelines respectively using the Global Lung Function Initiative-2012 reference equations. Patient demonstrated good effort and cooperation. Reproducibility criteria were met. The quality of the pre bronchodilator spirometry maneuver was Grade A and post bronchodilator spirometry maneuver was Grade A. Findings: Spirometry: The contour the inspiratory and expiratory flow tracing are normal. The pre bronchodilator FVC is 4.49 L, 96% predicted. The pre bronchodilator FEV1 is 3.04 L, 84% predicted. The pre bronchodilator FEV1: FVC ratio 68%. The post bronchodilator FVC is 4.35 L, representing a 3% decrease. The post bronchodilator FEV1 is 3.07 L, representing a 1% increase. The post bronchodilator FEV1: FVC ratio 71%. Plethysmography: The total lung capacity is 7.31 L, 103% predicted. The functional residual capacity is 3.61 L, 97% predicted. The residual volume is 2.82 L, 123% predicted. Diffusing capacity: The diffusing capacity unadjusted for hemoglobin and carboxyhemoglobin is 26.2, 92% predicted. The diffusing capacity adjusted for alveolar volume is 4.63, 111% predicted. Impression: The spirometry is normal without evidence of an obstructive abnormality. There is no significant improvement after inhaling a single dose of albuterol. The lung volumes are normal. The diffusing capacity is normal. There are no prior studies for comparison
== END 2024-07-21 14:44 | disposition home or self-care (01) ==
LOC: ANHPFT 14:45
PROVIDERS: PCP Internal Medicine; Visit Provider Internal Medicine
DX: R06.02 Shortness of breath (principal)
CPT/HCPCS: 94060; 94726; 94729